=== PATIENT | female | born 1990 | race Caucasian/White ===

== ENCOUNTER 2021-06-09 19:31 | Emergency (ER) | payer MEDICAID, SELFPAY ==
[~2021-06-09] VITALS: Ht 170.2 cm; Wt 68.0 kg
[2021-06-09 19:51] VITALS: BP_SYST 136
--- NOTE | 2021-06-09 19:51 | NUR ---
Pt triaged and placed to ER waiting room with mother in stable condition. No active vomiting noted at this time. Dr. Qureshi made aware.
[2021-06-09 21:30] LABS: CALCIUM 8.7 mg/dL (8.4-11.0); CREATININE 0.72 mg/dL (0.55-1.30); POTASSIUM 3.6 mmol/L (3.5-5.1)
[2021-06-09 21:36] LABS: ALBUMIN 4.2 g/dL (3.4-4.8); TOTAL BILIRUBIN 0.9 mg/dL (0.0-1.0)
[2021-06-09 21:42] LABS: BASOPHILS % (AUTO) 0.1 % (0.0-2.0); EOSINOPHILS % (AUTO) 0.1 % (0.0-4.0); HEMATOCRIT 40.2 % (36-48); LYMPHOCYTES # (AUTO) 0.5 K/uL (1.0-5.5); LYMPHOCYTES % (AUTO) 6.7 % (20.5-51.5); MEAN CORPUSCULAR HEMOGLOBIN 30 pg (27-31); MEAN CORPUSCULAR HGB CONC 35 % (32-36); MEAN CORPUSCULAR VOLUME 87 fL (79.0-98.0); MONOCYTES # (AUTO) 0.6 K/uL (0.0-1.0); NEUTROPHILS % (AUTO) 86.1 % (40.0-70.0); PLATELET COUNT (AUTO) 214 K/uL (130-430); RED BLOOD CELL COUNT(AUTO) 4.61 MIL/uL (4.2-6.2); RED CELL DISTRIBUTION WIDTH 12.3 % (9.0-15.0); WHITE BLOOD COUNT (AUTO) 8.2 K/uL (4.8-10.8)
--- NOTE | 2021-06-10 00:31 | NUR ---
Patient to ER bed 6 to gown for evaluation. Side rails up.
--- NOTE | 2021-06-10 00:33 | NUR ---
Patient BIB by family from home. C/O abdominal pain, nausea, vomitting x 1 day. Patient reported, had abdominal pain, nausea, vomitting and diarrhea last 24 hours.
[2021-06-10] MEDS: NACL 0.9% 1,000 ML IV ONE ×2 (01:16→03:26)
[2021-06-10] MEDS: ONDANSETRON HCL 4 MG/2 ML VIAL IVP ONE ×2 (01:19→01:56)
--- NOTE | 2021-06-10 01:25 | NUR ---
ER Dr. Calderon at bedside examining patient.
[2021-06-10 01:45] LABS: BILIRUBIN,URINE NEGATIVE (NEGATIVE); BLOOD, URINE NEGATIVE (NEGATIVE); CLARITY/URINE CLEAR (CLEAR); COLOR,URINE YELLOW (YELLOW); GLUCOSE,URINE NEGATIVE (NEGATIVE); KETONES,URINE 1+ (NEGATIVE); LEUKOCYTE ESTERASE ,URINE NEGATIVE (NEGATIVE); NITRITE, URINE NEGATIVE (NEGATIVE); PROTEIN URINE NEGATIVE (NEGATIVE); UROBILINOGEN,URINE 0.2 (0.2-1.0)
[2021-06-10] MEDS: ACETAMINOPHEN 500 MG TABLET PO ONE (03:24)
--- NOTE | 2021-06-10 03:55 | NUR ---
Pt c/o 11/[address] Caldeorn notified. Pt to received Morphine 4 mg IVP.
--- NOTE | 2021-06-10 04:02 | NUR ---
Patient refused Morphine , Dr. Calderon notified.
[2021-06-10] MEDS ORDERED: ONDA-8 TL (04:03)
[2021-06-10] MEDS: MORPHINE 4 MG INJ. 4 MG/ML VIAL IVP ONE ×2 (04:07→04:14)
[2021-06-10 04:41] VITALS: BP_SYST 134
--- NOTE | 2021-06-10 04:41 | NUR ---
Patient given written and verbal discharge instructions and verbalizes understanding. ER MD discussed with patient the results and treatment provided. Patient in stable condition. ID arm band removed. IV catheter removed intact and dressing applied, no active bleeding. Rx of Zofran given. Patient educated on pain management and to follow up with PMD. Pain Scale 1/10. Opportunity for questions provided and answered. Medication side effect fact sheet provided.
== END 2021-06-10 04:41 | disposition home or self-care (01) ==
LOC: SED 19:31
DX: E86.0 Dehydration (principal); R10.84 Generalized abdominal pain; R11.10 Vomiting, unspecified; R19.7 Diarrhea, unspecified; Z20.822 Contact with and (suspected) exposure to COVID-19
CPT/HCPCS: 36415; 71045; 80053; 81003; 81025; 83690; 85025; 86710; 87426; 96361; 96374; 96376; 99284; J2270; J2405; J7030

== ENCOUNTER 2023-07-10 21:25 | Emergency (ER) | payer MEDICAID ==
[~2023-07-10] VITALS: Ht 170.2 cm; Wt 70.3 kg
[~2023-07-10 21:25] MED LIST: ONDA-8 TL
[2023-07-10 21:49] VITALS: BP_SYST 171; PULSE 88; RESP 21; TEMP 98.5; O2SAT 100
[2023-07-11 00:18] LABS: BILIRUBIN,URINE NEGATIVE (NEGATIVE); BLOOD, URINE NEGATIVE (NEGATIVE); CLARITY/URINE CLEAR (CLEAR); COLOR,URINE YELLOW (YELLOW); GLUCOSE,URINE NEGATIVE (NEGATIVE); KETONES,URINE TRACE (NEGATIVE); LEUKOCYTE ESTERASE ,URINE NEGATIVE (NEGATIVE); NITRITE, URINE NEGATIVE (NEGATIVE); PROTEIN URINE NEGATIVE (NEGATIVE); UROBILINOGEN,URINE 0.2 (0.2-1.0)
[2023-07-11 00:26] LABS: CALCIUM 9.3 mg/dL (8.4-11.0); CREATININE 0.62 mg/dL (0.55-1.30)
[2023-07-11 00:32] LABS: ALBUMIN 4.3 g/dL (3.4-4.8); BILIRUBIN,DIRECT 0.2 mg/dL (0.0-0.3); TOTAL BILIRUBIN 0.7 mg/dL (0.0-1.0); TOTAL PROTEIN, SERUM 7.6 g/dL (6.4-8.3)
[2023-07-11 00:39] LABS: BASOPHILS % (AUTO) 0.6 % (0.0-2.0); EOSINOPHILS # (AUTO) 0.1 K/uL (0.0-0.4); EOSINOPHILS % (AUTO) 0.8 % (0.0-4.0); HEMATOCRIT 39.8 % (36-48); LYMPHOCYTES # (AUTO) 3.2 K/uL (1.0-5.5); LYMPHOCYTES % (AUTO) 35.7 % (20.5-51.5); MEAN CORPUSCULAR HEMOGLOBIN 31 pg (27-31); MEAN CORPUSCULAR HGB CONC 35 % (32-36); MEAN CORPUSCULAR VOLUME 88 fL (79.0-98.0); MONOCYTES # (AUTO) 0.7 K/uL (0.0-1.0); MONOCYTES % (AUTO) 7.7 % (1.7-9.3); NEUTROPHILS % (AUTO) 55.2 % (40.0-70.0); PLATELET COUNT (AUTO) 265 K/uL (130-430); RED BLOOD CELL COUNT(AUTO) 4.53 MIL/uL (4.2-6.2)
[2023-07-11] MEDS ORDERED: LISI20TA30 PO (01:49)
[2023-07-11 02:09] VITALS: BP_SYST 151; PULSE 85; RESP 19; TEMP 98.5; O2SAT 100
[2023-07-11] MEDS ORDERED: PHEN-726 PO (02:10)
[2023-07-11] MEDS ORDERED: KETOROLAC TROMETHAMINE 60 MG/2 ML VIAL IM ONE (02:15)
[2023-07-11] MEDS ORDERED: NACL 0.9% 1,000 ML IV ONE (23:53)
== END 2023-07-11 02:09 | disposition home or self-care (01) ==
LOC: SED 21:25
DX: N21.0 Calculus in bladder (principal); N36.8 Other specified disorders of urethra; R39.15 Urgency of urination; I10 Essential (primary) hypertension; Z79.899 Other long term (current) drug therapy
CPT/HCPCS: 99284; 80076; 80048; 81001; 85025; 87210; 36415; 81025; 81003; 74176; 76376; J1885